=== PATIENT | male | born 1995 | race Caucasian/White ===

== ENCOUNTER 2016-04-29 13:30 | Day surgery (SDC) | payer BC ==
[~2016-04-29] VITALS: Ht 188 cm; Wt 127.0 kg
[2016-04-29 14:00] VITALS: BP 156/81
[2016-04-29 19:45] VITALS: BP 155/89
[2016-04-29 20:50] VITALS: BP 140/87
== END 2016-04-29 21:00 | disposition home or self-care (01) ==
LOC: SDC 13:30
DX: M93.261 Osteochondritis dissecans, right knee (principal); M23.41 Loose body in knee, right knee; Z88.0 Allergy status to penicillin; Z80.9 Family history of malignant neoplasm, unspecified
CPT/HCPCS: J0131; J0171; J0330; J0690; J1100; J1170; J2250; J2405; J3010

== ENCOUNTER → 2017-04-24 | Outpatient (CLI) | payer BC ==
[~2017-04-24] VITALS: Ht 188 cm; Wt 124.7 kg
[~2017-04-24] MED LIST: LISINOPRIL10 MG PO
== END | disposition home or self-care (01) ==
LOC: AMB 12:30
PROC: 0DBM8ZX Excision of Descending Colon, Via Natural or Artificial Opening Endoscopic, Diagnostic (ICD-10-PCS; principal; 2017-04-24)
PROC: 0DBN8ZX Excision of Sigmoid Colon, Via Natural or Artificial Opening Endoscopic, Diagnostic (ICD-10-PCS; principal; 2017-04-24)
PROC: 0DBP8ZX Excision of Rectum, Via Natural or Artificial Opening Endoscopic, Diagnostic (ICD-10-PCS; principal; 2017-04-24)
DX: K64.8 Other hemorrhoids (principal); K62.89 Other specified diseases of anus and rectum; R19.7 Diarrhea, unspecified; I10 Essential (primary) hypertension; E66.9 Obesity, unspecified; Z68.37 Body mass index [BMI] 37.0-37.9, adult; Z80.8 Family history of malignant neoplasm of other organs or systems; Z88.0 Allergy status to penicillin; Z88.1 Allergy status to other antibiotic agents; Z88.2 Allergy status to sulfonamides
CPT/HCPCS: 88305; 93005; J2250